=== PATIENT | female | born 1995 | race Caucasian/White ===

== ENCOUNTER 2025-07-21 08:08 | Inpatient (IN) | payer BC ==
[2025-07-21] MEDS ORDERED: Carboprost Tromethamine 250 MCG/1 mL Vial IM PRN (08:12)
[2025-07-21] MEDS ORDERED: Water For Irrigation,Sterile 1,000 ML Container IRR PRN (08:12)
[2025-07-21] MEDS ORDERED: Terbutaline 1 MG/ML SDV SUBCUT PRN (08:12)
[2025-07-21] MEDS ORDERED: Sodium Chloride 0.9% 10 ML Syringe FLUSH PRN (08:12)
[2025-07-21] MEDS ORDERED: Sodium Chloride 0.9% 2.5 ML Syringe FLUSH PRN (08:12)
[2025-07-21] MEDS ORDERED: Oxytocin/0.9 % Sodium Chloride 30 UNIT/500 ML BAG IV SCH (08:15)
[2025-07-21] MEDS ORDERED: ePHEDrine 50 MG/ML SDV IVPUSH PRN (09:30)
[2025-07-21] MEDS ORDERED: dexmedeTOMIDine HCl 200 MCG/2 ML SDV EPIDUR SCH (09:30)
[2025-07-21] MEDS: Misoprostol 25 MCG (1/4 of 100 MCG) Tab VAG PRN ×2 (09:38→13:45)
[2025-07-21] MEDS: Misoprostol 25 MCG (1/4 of 100 MCG) Tab PO ONE (09:38)
[2025-07-21 09:58] LABS: MEAN PLATELET VOLUME 11.0 fL (9.4-12.3); NRBC ABSOLUTE 0.00 K/uL (0.00-0.02); NRBC PERCENT 0.0 /100WBC (0.0-0.2); PLATELET COUNT,PLT 294 K/uL (150-400); RED BLOOD CELL COUNT 4.64 M/uL (4.10-5.30); WHITE BLOOD CELL COUNT,WBC 9.02 K/uL (3.9-11.3)
[2025-07-21] MEDS: Lactated Ringers 1,000 ML IV SCH (17:47)
[2025-07-22] MEDS: Oxytocin/0.9 % Sodium Chloride 30 UNIT/500 ML BAG IV SCH (04:02)
[2025-07-22] MEDS: Nalbuphine 10 MG/1 ML Vial IVPUSH PRN (11:44)
[2025-07-22] MEDS: Ropivacaine HCl/PF 400 MG in Premix Bag 1 BAG EPIDUR SCH (14:26)
[2025-07-23] MEDS: Ondansetron 4 MG/2 ML SDV IVPUSH PRN (01:59)
[2025-07-23] MEDS ORDERED: Lanolin 100% Cream 7 GM Tube TOP PRN (04:03)
[2025-07-23 04:25] LABS: PH,UMBILICAL ARTERIAL 7.18 (7.18-7.38)
[2025-07-23 04:27] LABS: PH,UMBILICAL VENOUS 7.277 (7.25-7.45)
[2025-07-23] MEDS: Witch Hazel Medicated Pads 40/Jar TOP PRN (06:24)
[2025-07-23] MEDS: Benzocaine/Menthol 20%-0.5% Spray 78 GM Cannister TOP PRN (06:25)
== END 2025-07-24 11:58 | disposition home or self-care (01) | DRG 560 ==
LOC: MW.OBCHECK 08:08 → MW.OB 08:09 → MW.OBCHECK 08:27 → MW.OB 08:28 → MW.MS 07-22 09:34 → MW.OB 07-22 09:38 → OBSVTOIN 07-23 03:43 → MW.OB 07-23 07:48
PROVIDERS: ADMIT Obstetrics & Gynecology; ATTEND Obstetrics & Gynecology
PROC: 10E0XZZ Delivery of Products of Conception, External Approach (ICD-10-PCS; principal; 2025-07-23)
PROC: 4A1HXCZ Monitoring of Products of Conception, Cardiac Rate, External Approach (ICD-10-PCS; 2025-07-23)
PROC: 10H07YZ Insertion of Other Device into Products of Conception, Via Natural or Artificial Opening (ICD-10-PCS; 2025-07-23)
PROC: 3E0334Z Introduction of Serum, Toxoid and Vaccine into Peripheral Vein, Percutaneous Approach (ICD-10-PCS; 2025-07-24)
DX: O48.0 Post-term pregnancy (principal); Z3A.41 41 weeks gestation of pregnancy; Z37.0 Single live birth; O42.10 Premature rupture of membranes, onset of labor more than 24 hours following rupture, unspecified weeks of gestation; O36.5930 Maternal care for other known or suspected poor fetal growth, third trimester, not applicable or unspecified; O70.1 Second degree perineal laceration during delivery; O77.0 Labor and delivery complicated by meconium in amniotic fluid
CPT/HCPCS: 01967; 36415; 51702; 59025; 82803; 82947; 85014; 85018; 85027; 85460; 86592; 86850; 86900; 86901; A9270-GY; J2300; J2405; J2590; J2791; J2795; J7120